=== PATIENT | female | born 1965 | race Caucasian/White ===

== ENCOUNTER → 2016-05-12 | Outpatient (CLI) | payer BC ==
[~2016-05-12] MED LIST: BCPILLS PO; CITA40TA12 PO; GLUC500C4 PO; MULTTAB58 PO
== END | disposition home or self-care (01) ==
LOC: C.PATHSPEC 15:42
PROVIDERS: ATTEND Obstetrics & Gynecology
DX: N93.9 Abnormal uterine and vaginal bleeding, unspecified (principal); N85.8 Other specified noninflammatory disorders of uterus

== ENCOUNTER 2016-07-21 18:50 | Emergency (ER) | payer BC ==
[~2016-07-21] VITALS: Ht 172.7 cm; Wt 72.3 kg
[~2016-07-21 18:50] MED LIST changes: -BCPILLS PO; -GLUC500C4 PO
[2016-07-21 18:54] VITALS: TEMP 36.9; Ht 172.7 cm; Wt 72.3 kg
[2016-07-21] MEDS ORDERED: BCPILLS PO (19:23)
[2016-07-21] MEDS ORDERED: GLUC500C4 PO (19:23)
--- NOTE | 2016-07-21 19:34 | DIAGNOSTIC IMAGING REPORT ---
RIGHT FOOT 3 VIEWS CLINICAL HISTORY: Right foot injury. FINDINGS: 3 views of the right foot are obtained. No prior studies are available for comparison at the time of dictation. The skeletal structures are well mineralized. No fracture is seen. Mild arthritic change is noted the first metatarsophalangeal joint. The joint spaces are otherwise maintained. There is an ankle joint effusion, and significant soft tissue edema is present in the foot and ankle. A large plantar calcaneal enthesophyte is identified. An os trigonum is incidentally noted. IMPRESSION: Soft tissue swelling and ankle joint effusion. No fracture is seen in the right foot. Electronically signed by: Johnny Avalos M.D. 07/21/2016 7:32 PM Dictated Date/Time: 07/21/2016 7:30 PM
--- NOTE | 2016-07-21 19:36 | DIAGNOSTIC IMAGING REPORT ---
RIGHT ANKLE 3 VIEWS CLINICAL HISTORY: Right ankle injury. FINDINGS: 3 views of the right ankle are obtained. No prior studies are available for comparison at the time of dictation. The skeletal structures are well mineralized. No fracture is seen. An os trigonum is incidentally noted. There is a large plantar calcaneal enthesophyte. There is an ankle joint effusion. Soft tissue edema is present around the ankle, greatest overlying the lateral malleolus. IMPRESSION: Soft tissue swelling and joint effusion. No right ankle fracture is seen. Electronically signed by: Johnny Avalos M.D. 07/21/2016 7:34 PM Dictated Date/Time: 07/21/2016 7:32 PM
--- NOTE | 2016-07-21 19:52 | EMERGENCY ROOM VISIT NOTE ---
ED Visit Note First contact with patient: 18:56 CHIEF COMPLAINT: Ankle pain HISTORY OF PRESENT ILLNESS: This 50-year-old female patient presents to the emergency department ambulatory after sustaining an injury to the right ankle and foot with a twisting, inversion motion approximately one week ago. The patient states that she missed a step and turned her ankle. The patient complains of pain along the outside of the ankle. The patient denies pain of the foot. The patient rates the pain as sharp and 3/10. The patient is able to bear weight on the foot. Constant pain, worse with movement, weight bearing , and the dependent position. No knee pain, the patient is able to move their toes. No numbness or weakness of the foot, no laceration. The patient has not had a previous fracture to this ankle. The patient has taken no medication for the pain. The patient denies any other injury. REVIEW OF SYSTEMS: A 6 system review of systems was completed with positives and pertinent negatives listed in the HPI. ALLERGIES: Sulfa drugs MEDICATIONS: control pills, citalopram, glucosamine, multivitamin PMH: Appendectomy, kidney stones SOCIAL HISTORY: The patient lives locally with her family. Nonsmoker. PHYSICAL EXAM: Vital Signs: Reviewed Nurse's notes, vital signs stable. GENERAL : This is a 50-year-old female, no acute distress, but appears in pain, well- developed, well-nourished. MENTAL STATUS: Alert, oriented to person place and time, and cooperative. MUSCULOSKELETAL: The right ankle is swollen and tender over the lateral malleolus. There is mild swelling over the medial malleolus. There is 1+ pitting edema of the foot. There is significant ecchymosis of the medial aspect of the foot as well as the toes. The patient is mildly tender over the area of the third and fourth metatarsals. There is no calf or proximal tibia/fibular tenderness. There is no visual deformity. The foot and toes are warm and well-perfused. Dorsalis pedis pulse 2+. Sensation to pain and light touch is intact. Capillary refill less than 2 seconds. RADIOGRAPHIC FINDINGS: RIGHT ANKLE 3 VIEWS FINDINGS: 3 views of the right ankle are obtained. No prior studies are available for comparison at the time of dictation. The skeletal structures are well mineralized. No fracture is seen. An os trigonum is incidentally noted. There is a large plantar calcaneal enthesophyte. There is an ankle joint effusion. Soft tissue edema is present around the ankle, greatest overlying the lateral malleolus. IMPRESSION: Soft tissue swelling and joint effusion. No right ankle fracture is seen. RIGHT FOOT 3 VIEWS FINDINGS: 3 views of the right foot are obtained. No prior studies are available for comparison at the time of dictation. The skeletal structures are well mineralized. No fracture is seen. Mild arthritic change is noted the first metatarsophalangeal joint. The joint spaces are otherwise maintained. There is an ankle joint effusion, and significant soft tissue edema is present in the foot and ankle. A large plantar calcaneal enthesophyte is identified. An os trigonum is incidentally noted. IMPRESSION: Soft tissue swelling and ankle joint effusion. No fracture is seen in the right foot. EMERGENCY DEPARTMENT COURSE: I examined the patient. X-rays of the right ankle and foot were reviewed by myself and read by radiology and reveal no acute fractures. Gel ankle splint was applied to the ankle under my direction and the position was satisfactory. Neurovascular status was rechecked and intact. The patient was instructed on the use of crutches. She was given information for orthopedic follow-up and instructed to call for appointment if she had continued pain in 5-6 days. Conservative measures were discussed. The patient verbalized understanding of my assessment and treatment plan. The patient was discharged home in good condition. DIAGNOSIS: Right ankle injury Problem List Medical Problems: (1) Appendectomy Status: Resolved (2) section Status: Resolved (3) Kidney stone Status: Resolved Current/Historical Medications Scheduled Control Pills ( Control Pills), 1 TAB PO DAILY Citalopram Hydrobromide (Celexa), 40 MG PO DAILY Glucosamine Sulfate (Glucosamine), Unknown Dose PO DAILY Multiple Vitamin (Multivitamin), 1 TAB PO DAILY Allergies Coded Allergies: Sulfa Drugs (Verified Allergy, Intermediate, RASH, 06/14/09) Vital Signs Date Time Temp Pulse Resp B/P Pulse Ox O2 Delivery O2 Flow Rate FiO2 07/21/16 18:54 36.9 106 18 135/87 97 Room Air Departure Information Impression Primary Impression: Injury of ankle, right Dispostion Home / Self-Care Condition GOOD Referrals Montez Fu M.D. (PCP) Ruddy Holley M.D. Patient Instructions My [facility] Additional Instructions You have been treated in the Emergency Department for an Ankle injury. For pain control, you can use the following zois-shu-wuazfqa medicines (if >12 yo): - Regular strength (325mg/tab) Tylenol (acetaminophen) 2 tabs every 4-6 hours as needed. Do not exceed 12 tablets in a 24 hour period. Avoid taking more than 4 grams (4000 mg) of Tylenol per day. This includes any other sources of acetaminophen you may take on a regular basis. - Regular strength (200 mg/tab) Advil (ibuprofen) 1-2 tabs every 4-6 hours as needed. Do not exceed a dose of 3200 mg per day. If this is a recent injury (<24 hrs), ice can be applied to the area of pain for the first 3 days to help decrease pain and inflammation. Wear the ankle splint and use the crutches for the next 4-5 days, then as needed. Follow-up with orthopedics if there is persistent pain or difficulty walking in 4-5 days. Return to the Emergency Department if your current symptoms worsen despite treatment course outlined above, or if you develop any of the following symptoms : intractable pain despite aforementioned treatment course or new onset of numbness or tingling of the foot. Problem Qualifiers Primary Impression: Injury of ankle, right Encounter type: initial encounter Qualified Codes: S99.911A - Unspecified injury of right ankle, initial encounter
[2016-07-21 20:18] VITALS: BP 131/81; PULSE 94; O2SAT 98
== END 2016-07-21 20:19 | disposition home or self-care (01) ==
LOC: C.EDB 18:52 → C.EDD 20:19
DX: S99.911A Unspecified injury of right ankle, initial encounter (principal); Z79.899 Other long term (current) drug therapy; X58.XXXA Exposure to other specified factors, initial encounter; Y99.8 Other external cause status

== ENCOUNTER → 2017-05-31 | Outpatient (CLI) | payer OTHER ==
[~2017-05-31] MED LIST changes: +BCPILLS PO; +GLUC500C4 PO
== END | disposition home or self-care (01) ==
LOC: C.PAPS 09:49
PROVIDERS: ATTEND Obstetrics & Gynecology
DX: Z01.419 Encounter for gynecological examination (general) (routine) without abnormal findings (principal)

== ENCOUNTER → 2017-06-03 | Outpatient (CLI) | payer OTHER ==
--- NOTE | 2017-06-04 13:24 | MAMMOGRAPHY REPORT ---
BILATERAL DIGITAL SCREENING MAMMOGRAM TOMOSYNTHESIS WITH CAD: 06/03/2017 CLINICAL HISTORY: Routine screening. TECHNIQUE: Breast tomosynthesis in addition to standard 2D mammography was performed. Current study was also evaluated with a Computer Aided Detection (CAD) system. COMPARISON: Comparison is made to exams dated: 10/10/2013 mammogram, 03/02/2013 mammogram, 02/21/2013 mammogram, and 08/25/2011 mammogram - [facility]. BREAST COMPOSITION: The tissue of both breasts is heterogeneously dense, which may obscure small mas ses. FINDINGS: No suspicious masses, calcifications, or areas of architectural distortion are noted in ei ther breast. There has been no significant interval change compared to prior exams. IMPRESSION: ACR BI-RADS CATEGORY 1: NEGATIVE There is no mammographic evidence of malignancy. A 1 year screening mammogram is recommended. The pa tient will receive written notification of the results. Approximately 10% of breast cancers are not detected with mammography. A negative mammographic report should not delay biopsy if a clinically suggestive mass is present. Hoa Smart M.D. ah/:06/03/2017 15:03:07 Diabetes Trainer: Shayla HAMMOND(R)(M), [facility] letter sent: Normal 1/2 BI-RADS Code: ACR BI-RADS Category 1: Negative
== END | disposition home or self-care (01) ==
LOC: C.MAMM 13:57
PROVIDERS: ATTEND Obstetrics & Gynecology
DX: Z12.31 Encounter for screening mammogram for malignant neoplasm of breast (principal)

== ENCOUNTER 2017-09-18 21:46 | Emergency (ER) | payer OTHER ==
[~2017-09-18] VITALS: Ht 170.2 cm; Wt 70.9 kg
[2017-09-18 21:47] VITALS: BP 137/92; PULSE 95; TEMP 36.9; O2SAT 98; Ht 170.2 cm; Wt 70.9 kg
[2017-09-18] MEDS ORDERED: IBUPROFEN 600 MG TAB PO STA (22:09)
[2017-09-18] MEDS ORDERED: ACETAMINOPHEN 500 MG TAB PO STA (22:09)
--- NOTE | 2017-09-18 22:11 | EMERGENCY ROOM VISIT NOTE ---
History Report prepared by Missael: Oliva Lerner Under the Supervision of: Dr. Babatunde Jerez M.D. First contact with patient: 21:58 Chief Complaint: BITE Stated Complaint: CUT, SECOND LEFT FINGER History of Present Illness The patient is a 51 year old white female with a past medical history of kidney stones who presents to the ED with a cc of a cut on her left second and third finger beginning at around 1100 this morning. Positive swelling. Negative numbness or tingling. She reports she broke up a dog fight and thinks her left hand was bitten. She states she has some constant pulsating pain. She took some Advil but it did modify her pain. She thinks her last tetanus shot was within the last 10 years. Source of History: patient Onset: 1100 this morning Position: finger(s) (left second and third) Quality: other (pulsating) Timing: constant Associated Symptoms: No numbness Note: Positive swelling. Negative tingling. Review of Systems See HPI for pertinent positives and negatives. A total of ten systems were reviewed and were otherwise negative. Past Medical & Surgical Medical Problems: (1) Appendectomy (2) section (3) Kidney stone Family History No pertinent family history Social History Smoking Status: Never Smoker Alcohol Use: none Marital Status: Housing Status: lives with family Current/Historical Medications Scheduled Amoxicillin & Pot Clavulanate (Augmentin 875-125 mg), 1 TAB PO BID Control Pills ( Control Pills), 1 TAB PO DAILY Cephalexin Monohydrate (Keflex), 500 MG PO QID Citalopram Hydrobromide (Celexa), 40 MG PO DAILY Multiple Vitamin (Multivitamin), 1 TAB PO DAILY Scheduled PRN Nitrofurantoin Monohyd Macrocr (Macrobid), 100 MG PO DIRECTED PRN for BLADDER INFECTION Ondansetron Hcl (Zofran), 4 MG PO Q8H PRN for Nausea Allergies Coded Allergies: Sulfa Drugs (Verified Allergy, Intermediate, RASH, 09/18/17) Physical Exam Vital Signs Date Time Temp Pulse Resp B/P (MAP) Pulse Ox O2 Delivery O2 Flow Rate FiO2 09/18/17 21:47 36.9 95 18 137/92 98 Room Air Physical Exam GENERAL: Awake, alert, well-appearing, NAD HENT: Normocephalic, atraumatic. EYES: Normal conjunctiva. Sclera non-icteric. PERRL. No anisocoria. NECK: Supple. No nuchal rigidity. FROM. RESPIRATORY: CTAB, no rhonchi, wheezing, crackles CARDIAC: RRR, no MRG ABDOMEN: Soft, NTND, BS+ MSK: No chest wall TTP, no LE edema NEURO: GCS 15, CN 2-12 intact, moves all 4s on command SKIN: No rash or jaundice noted. 2 lacerations to the second and third volar DPs. Mild swelling, no sensory deficits. FDP/FDS intact Medical Decision & Procedures ER Provider Diagnostic Interpretation: Radiology results as stated below per my review and radiologist interpretation: L HAND MIN 3 VIEWS ROUTINE HISTORY: 51 years-old Female s/p dog bite, wounds to 2nd/3rd digits acute leg wound of the left hand COMPARISON: None available TECHNIQUE: 3 views of the left hand FINDINGS: There is acute nondisplaced intra-articular fracture involving the medial base of the second distal phalanx with mild associated soft tissue swelling. Tiny bone fragment is noted within this region on the oblique film. No opaque foreign body. No additional acute fracture or dislocation. Soft tissue swelling of the third digit also noted. IMPRESSION: Acute nondisplaced intra-articular fracture of the medial base second distal phalanx. The above report was generated using voice recognition software. It may contain grammatical, syntax or spelling errors. Electronically signed by: Arnulfo Leos M.D. 09/18/2017 10:25 PM Dictated Date/Time: 09/18/2017 10:23 PM Medications Administered Medications (Trade) Dose Ordered Sig/Per Route Start Time Stop Time Status Last Admin Dose Admin Diphtheria/ Pertussis/Tetanus Vacc (Adacel Inj) 0.5 ml ONCE ONCE IM. 09/18/17 22:15 09/18/17 22:16 DC 09/18/17 22:31 0.5 ML Amoxicillin/ Clavulanate Potassium (Augmentin Tab) 875 mg NOW ONCE PO 09/18/17 22:15 09/18/17 22:16 DC 09/18/17 22:32 875 MG ED Course 220: The patient was evaluated in room C2. A complete history and physical exam was performed. 2208: Ordered Tylenol Tab 1000 mg, Ibuprofen 600 mg PO 2214: Ordered Lidocaine HCl 10 ml INFIL, Augmentin Tab 875 mg PO, Adacel Inj 0.5 ml IM 0: Ordered Keflex Cap 500 mg PO 2244: Discussed the patient's case with Dr. Miguel Sifuentes. He agrees with the plan of care and the patient will follow up. 2249: I washed out the wound and she will follow up with Ortho. Discussed results and discharge instructions: She verbalized understanding and agreement. The patient is ready for discharge. Medical Decision The patient is a 51 year old white female with a past medical history of kidney stones who presents to the ED with a cc of a cut on her left second and third finger beginning at around 1100 this morning. Positive swelling. Negative numbness or tingling. Differential diagnosis: Etiologies such as cellulitis, abscess, MRSA infection, DVT, necrotizing fasciitis, dermatitis, drug eruption, as well as others were entertained. Patient was seen and evaluated the bedside. Patient did have a dog bite to the left second and third digits around 11 AM this morning. The dogs can be monitored and are up-to-date on her vaccinations including rabies. Patient noted that she did have some expulsion of the subcu fat. The patient otherwise is right-hand dominant. Patient denies any numbness tingling or weakness. The patient is not taking anything for pain. The patient's tetanus is not up-to- date. The patient did have a left hand film completed and her tetanus was updated. The patient was also given on mag Augmentin. The patient was noted to have a nondisplaced fracture of the proximal base of the second distal phalanx. Patient was also given some Keflex. The wound was left open to secondary intention as there was concern for the puncture wound as well as the swelling. The patient's wounds were copiously irrigated and a dressing was placed with antibiotic ointment. The patient was given strict follow-up and wound care precautions. I did speak with the on-call orthopedist milligrams stated that they would see the patient in clinic next week. Patient was advised to return if she had any worsening symptoms. The patient was deemed suitable for outpatient follow-up and treatment at this time. Patient was given strict follow-up, discharge, and return precautions. All questions were answered. Patient was deemed suitable for outpatient follow-up at this time. Patient agreed with the plan of care and was safely discharged home. Medication Reconcilliation Current Medication List: was personally reviewed by me Blood Pressure Screening Patient's blood pressure: Normal blood pressure Blood pressure disposition: Did not require urgent referral Consults Time Called: 2240 Consulting Physician: Dr. Miguel Sifuentes Returned Call: 2244 Discussed the patient's case with Dr. Miguel Sifuentes. He agrees with the plan of care and the patient will follow up. Impression Primary Impression: Fracture, finger, distal phalanx, open Additional Impressions: Dog bite Laceration Scribe Attestation The scribe's documentation has been prepared under my direction and personally reviewed by me in its entirety. I confirm that the note above accurately reflects all work, treatment, procedures, and medical decision making performed by me. Departure Information Dispostion Home / Self-Care Prescriptions Ondansetron Hcl (ZOFRAN) 4 Mg Tab 4 MG PO Q8H Y for Nausea, #12 TAB Prov: Babatunde Jerez M.D. 09/18/17 Cephalexin Monohydrate (KEFLEX) 500 Mg Cap 500 MG PO QID for 7 Days, #28 CAP Prov: Babatunde Jerez M.D. 09/18/17 Amoxicillin & Pot Clavulanate (Augmentin 875-125 mg) 1 Tab Tab 1 TAB PO BID for 7 Days, #14 TAB Prov: Babatunde Jerez M.D. 09/18/17 Referrals Montez Fu M.D. (PCP) Robin Rivera MD Forms HOME CARE DOCUMENTATION FORM, IMPORTANT VISIT INFORMATION Patient Instructions ED Bite Dog, ED Laceration All, ED Laceration Hand, ED Wound Care, Fx Hand Tx, My [facility] Additional Instructions Please return to the emergency department if you have worsening or recurrent symptoms not amenable to at-home treatment. Please call for a follow-up appointment with her primary care physician. Please take your medications as prescribed. If you have other concerns and/or complaints please feel free to also call your primary care physician's office or return the ED for further evaluation, management, and treatment. You may take 800 mg Ibuprofen every 6 hours as needed for pain/fever with food unless told by your physician not to take NSAIDs. You may take tylenol 1000 mg every 6 hours as needed for pain/fever unless told by your physician to not take it or have liver problems. You may take motrin and tylenol separately or at the same time. Take your medications as prescribed. If taking an antibiotic consider taking a probiotic and/or eating yogurt, but at the least, please take with food as it can cause upset stomach. Please follow-up with your primary care physician as well as with orthopedics for wound checks and additional hand care. Return if you have any worsening symptoms. Do not soak your wounds but you may use gentle soap and water to wash them daily. Please apply an antibiotic ointment as well as a daily dressing change. You have been examined and treated today on an emergency basis only. This is not a substitute for, or an effort to provide, complete comprehensive medical care. It is impossible to recognize and treat all injuries or illnesses in a single emergency department visit. It is therefore important that you follow up closely with [facility], your PCP, and/or your specialist(s). Call as soon as possible for an appointment. Thank you for your time and consideration. I look forward to speaking with you again soon. Please don't hesitate to call us if you have any questions. Problem Qualifiers Primary Impression: Fracture, finger, distal phalanx, open Encounter type: initial encounter Finger: index finger Fracture alignment: nondisplaced Laterality: left Qualified Codes: S62.661B - Nondisplaced fracture of distal phalanx of left index finger, initial encounter for open fracture Additional Impressions: Dog bite Encounter type: initial encounter Qualified Codes: W54.0XXA - Bitten by dog , initial encounter
[2017-09-18] MEDS ORDERED: DIPHTHERIA/TETANUS/PERTUSSIS 0.5 ML SYR/VIAL IM. ONE (22:15)
[2017-09-18] MEDS ORDERED: LIDOCAINE HCL 1% 20 ML VIAL INFIL ONE (22:15)
[2017-09-18] MEDS ORDERED: AMOXICILLIN/CLAVULANATE TAB 875 MG TAB PO ONE (22:15)
[2017-09-18] MEDS ORDERED: NITR-5 PO (22:21)
--- NOTE | 2017-09-18 22:27 | DIAGNOSTIC IMAGING REPORT ---
L HAND MIN 3 VIEWS ROUTINE HISTORY: 51 years-old Female s/p dog bite, wounds to 2nd/3rd digits acute leg wound of the left hand COMPARISON: None available TECHNIQUE: 3 views of the left hand FINDINGS: There is acute nondisplaced intra-articular fracture involving the medial base of the second distal phalanx with mild associated soft tissue swelling. Tiny bone fragment is noted within this region on the oblique film. No opaque foreign body. No additional acute fracture or dislocation. Soft tissue swelling of the third digit also noted. IMPRESSION: Acute nondisplaced intra-articular fracture of the medial base second distal phalanx. The above report was generated using voice recognition software. It may contain grammatical, syntax or spelling errors. Electronically signed by: Arnulfo Leos M.D. 09/18/2017 10:25 PM Dictated Date/Time: 09/18/2017 10:23 PM
[2017-09-18] MEDS ORDERED: AMOX875T PO (23:15)
[2017-09-18] MEDS ORDERED: ONDA4TAB46 PO (23:15)
[2017-09-18] MEDS ORDERED: CEPH500C2 PO (23:15)
[2017-09-18] MEDS ORDERED: CEPHALEXIN MONOHYDRATE 250 MG CAP PO ONE (23:30)
== END 2017-09-18 23:34 | disposition home or self-care (01) ==
LOC: C.EDB 21:47 → C.EDC 23:34
DX: S62.661B Nondisplaced fracture of distal phalanx of left index finger, initial encounter for open fracture (principal); S61.251A Open bite of left index finger without damage to nail, initial encounter; S61.253A Open bite of left middle finger without damage to nail, initial encounter; W54.0XXA Bitten by dog, initial encounter; Z23 Encounter for immunization; Z79.3 Long term (current) use of hormonal contraceptives; Z88.2 Allergy status to sulfonamides